=== PATIENT | male | born 1945 | race Asian ===

== ENCOUNTER 2018-02-27 17:49 | Emergency (ER) | payer OTHER, MEDICAID ==
[~2018-02-27] VITALS: Ht 152.4 cm; Wt 66.7 kg
[2018-02-27 18:11] VITALS: BP 128/69; Ht 152.4 cm; Wt 66.7 kg
== END 2018-02-27 18:40 | disposition home or self-care (01) ==
LOC: ED 17:49
DX: J30.9 Allergic rhinitis, unspecified (principal); I10 Essential (primary) hypertension
CPT/HCPCS: J7512